=== PATIENT | male | born 1995 | race Caucasian/White ===

== ENCOUNTER 2018-01-24 21:18 | Emergency (ER) | payer SELFPAY ==
[2018-01-24 21:19] VITALS: BP 109/64; PULSE 102; RESP 15; TEMP 36.5; BMI 17.9
--- NOTE | 2018-01-24 21:30 | ED.VISSUMM ---
- ER Visit Summary Date of Service: 01/24/18 Chief Complaint: Right index finger laceration History of Present Illness: The patient is a 23 M who cut his finger while chopping vegetables. This occurred 21 hours ago. He did not come in to get evaluated. His tetanus is up-to-date. He came in today because it kept bleeding when he would bend his finger. Physical Examination: Vitals are reviewed. Right hand exam reveals a 1.5 cm laceration of the right index finger over the PIP joint on the radial side. No bleeding at this time. Test Results: None indicated Emergency Department Course and Treatment: I informed the patient that he is out of the window for suturing. We will clean this area and put a dressing on it. He will follow-up with his PCP. He will put topical antibiotic cream on the area as well. Treatment Plan: [] Disposition: Discharge Impression: Right index finger laceration This note was generated with [employer] dictation software. It may contain incorrect words, spelling, and punctuation that were not noted in review of the chart prior to signing ED Disposition - Plan for ED Patient: Chief Complaint: Laceration
--- NOTE | 2018-01-24 21:31 | ED.DEP ---
ED Disposition - Plan for ED Patient: Disposition: Home or Assisted Living Chief Complaint: Laceration Instructions: ED Laceration All Referrals: Maya Finley MD [COURTESY STAFF PHYSICIAN] -
== END 2018-01-24 22:13 | disposition home or self-care (01) ==
LOC: ED 21:37
PROVIDERS: Emergency Provider Emergency Medicine; Family Provider Pediatrics; PCP Pediatrics
DX: S61.210A Laceration without foreign body of right index finger without damage to nail, initial encounter (principal); W26.0XXA Contact with knife, initial encounter; Y93.G3 Activity, cooking and baking; Y92.9 Unspecified place or not applicable; Y99.9 Unspecified external cause status; Z72.0 Tobacco use
CPT/HCPCS: 99282

== ENCOUNTER 2018-02-06 13:48 | Emergency (ER) | payer SELFPAY ==
[2018-02-06 13:49] VITALS: BP 119/71; PULSE 109; RESP 18; TEMP 37.3; O2SAT 99; BMI 17.8
--- NOTE | 2018-02-06 15:25 | ED.DCSUM_ITS ---
- ER Visit Summary Date of Service: 02/06/18 Chief Complaint: Cough congestion History of Present Illness: The patient is a 23 M with 2 day history of cough and congestion. He has some myalgias but no fevers. He has bilateral ear pain and rhinorrhea. He has some sinus congestion. Physical Examination: Not appear in acute distress. Moist mucous membranes, no obvious facial deformity. He has bulging TMs sinus tenderness beefy red nasal turbinates and postnasal drip. No C-spine tenderness supple neck. Regular rate and rhythm without any obvious murmurs Clear lungs bilaterally speaking in full sentences without any obvious respiratory distress Abdomen soft and nontender no guarding or rebound Moves all extremities without any difficulty or pain. Skin does not show any obvious rashes or lesions, no trauma. Alert oriented ?3 with no gross focal deficit Emergency Department Course and Treatment: [Patient will be treated for sinusitis and given a work excuse. He will be discharged in stable condition] Impression: [Sinusitis] This note was generated with [employer] dictation software. It may contain incorrect words, spelling, and punctuation that were not noted in review of the chart prior to signing ED Disposition - Plan for ED Patient: Disposition: Home or Assisted Living Chief Complaint: General Illness Instructions: Causes of Sinusitis Prescriptions: Benzocaine/Menthol [Cepacol Sore Throat Lozenge] 1 ea MM Q4H PRN PRN #30 gaviota PRN Reason: Sore Throat Amox/Clavulanate Tablet [Augmentin Tablet] 875 mg PO Q12H #20 tab Referrals: Riley Saha MD [Primary Care Provider] - 5-7 Days
== END 2018-02-06 15:47 | disposition home or self-care (01) ==
PROVIDERS: Emergency Provider Emergency Medicine; Family Provider Pediatrics; PCP Pediatrics
DX: J32.9 Chronic sinusitis, unspecified (principal); Z72.0 Tobacco use
CPT/HCPCS: 99282

== ENCOUNTER 2018-04-24 13:02 | Emergency (ER) | payer SELFPAY ==
[2018-04-24 13:03] VITALS: BP 117/83; PULSE 99; RESP 17; TEMP 37.1; O2SAT 99; BMI 18.2
--- NOTE | 2018-04-24 14:09 | RAD_ITS ---
STUDY: X-RAY CHEST REASON FOR EXAM: Male, 23 years old. Cough TECHNIQUE: PA and lateral views of the chest. COMPARISON: None. FINDINGS: The lungs are hyperinflated there is no visualized focal consolidation pleural effusion or pulmonary edema. There is no demonstrated pleural abnormality. Normal size heart. Normal mediastinum and jimi. Normal visualized pulmonary arteries. Normal visualized aortic arch and descending thoracic aorta. Normal visualized thoracic spine. Normal visualized ribs, clavicles, and shoulders. There is no demonstrated abnormality of the visualized soft tissue structures of the upper abdomen. RAD/Chest PA and Lateral IMPRESSION: Nonspecific hyperinflation of the lungs no evidence of acute focal infiltrate. Electronically Signed: Karolina Wallace MD at 16:07 EDT Tel , Service support ,
[2018-04-24] MEDS: Ondansetron ODT 4 MG Tablet PO (15:12)
--- NOTE | 2018-04-24 16:31 | ED.DCSUM_ITS ---
- ER Visit Summary Date of Service: 04/24/18 Chief Complaint: URI History of Present Illness: The patient is a 23 M presenting with URI symptoms. Patient complains of cough, rhinorrhea, sore throat. He states his symptoms have been going on for the past 1.5 months. He has been seen by Tameka Guevara. He states he was tested for HIV, mono, and hep C. He states all of these tests came back negative. He continues to have a cough. He also complains of nausea vomiting diarrhea. He states that he had 2 episodes of vomiting today. Denies abdominal pain or other complaints. Physical Examination: Vitals are stable. Patient is afebrile. Alert no acute distress. HEENT exam is unremarkable. Pharynx is normal. No erythema, no exudate, uvula is midline Neck is supple. No meningismus Lungs are clear and equal bilaterally. Heart is regular rate and rhythm. Abdomen is soft nontender nondistended. No guarding or rebound Extremities are unremarkable. Skin is warm and dry. No rash No focal neurologic deficit. Remainder of exam is unremarkable. Emergency Department Course and Treatment: Patient is given Zofran p.o. with improvement. He is able to tolerate p.o. Chest x-ray shows no acute process. He is given a prescription for Tessalon Perles. Advised to follow-up with his primary care physician. Advised return to ED if worsening complaints. Disposition: Discharge home Impression: Viral syndrome This note was generated with [employer] dictation software. It may contain incorrect words, spelling, and punctuation that were not noted in review of the chart prior to signing ED Disposition - Plan for ED Patient: Chief Complaint: Cold Sx Referrals: Tameka Guevara [Primary Care Provider] -
--- NOTE | 2018-04-24 16:31 | ED.DEP ---
ED Disposition - Plan for ED Patient: Chief Complaint: Cold Sx Instructions: ED Upper Resp Infec No Abx Tx Prescriptions: Benzonatate [Tessalon Perle] 200 mg PO TID PRN PRN #20 capsule PRN Reason: Cough Referrals: Tameka Guevara [Primary Care Provider] -
== END 2018-04-24 16:41 | disposition home or self-care (01) ==
LOC: ED 14:35
PROVIDERS: Emergency Provider Emergency Medicine
DX: B34.9 Viral infection, unspecified (principal); R11.2 Nausea with vomiting, unspecified; R50.9 Fever, unspecified; R05 Cough; J02.9 Acute pharyngitis, unspecified; R19.7 Diarrhea, unspecified; Z72.0 Tobacco use
CPT/HCPCS: 71046; 99283

== ENCOUNTER 2018-11-07 11:28 | Emergency (ER) | payer SELFPAY ==
[2018-11-07 11:29] VITALS: BP 131/74; PULSE 109; RESP 16; TEMP 36.6; O2SAT 98; BMI 38.9
--- NOTE | 2018-11-07 12:08 | RAD_ITS ---
STUDY: X-RAY CHEST REASON FOR EXAM: Male, 23 years old. Cough. TECHNIQUE: PA and lateral views of the chest. COMPARISON: April 24, 2018 FINDINGS: The lungs are clear and expanded. There is no demonstrated pleural abnormality. Normal size heart. Normal mediastinum and jimi. Normal visualized pulmonary arteries. Normal visualized aortic arch and descending thoracic aorta. Normal visualized thoracic spine. Normal visualized ribs, clavicles, and shoulders. There is no demonstrated abnormality of the visualized soft tissue structures of the upper abdomen. RAD/Chest PA and Lateral IMPRESSION: Normal x-ray examination of the chest. Electronically Signed: Srinivas Gamboa MD at 13:19 EDT , Service support ,
[2018-11-07 13:12] VITALS: BP 118/78; PULSE 87; RESP 17; TEMP 36.3; O2SAT 99
--- NOTE | 2018-11-07 13:40 | ED.DCSUM_ITS ---
- ER Visit Summary Date of Service: 11/07/18 Chief Complaint: Sinusitis History of Present Illness: The patient is a 23 M who states for the past several days he has had nasal congestion runny nose bilateral ear pain a nonproductive cough and last night developed fever of 102.1 as low as chills and sweats. Is been taking Tylenol Cold and flu as well as the Mucinex. Notes a little bit of discomfort in his right mid lung he states it hard for him to describe it feels like something is there. He has a history of asthma not currently taking any medications. History of smoking. Physical Examination: Afebrile vital signs are stable Gen: Well-nourished well-developed Head: Normocephalic atraumatic Eyes: Perrl EOMI ENT: TMs clear bilateral turbinate edema. Postnasal drip. Moist mucous membranes Neck: Supple no lymphadenopathy no JVD nontender CVS: Regular rate rhythm no murmurs normal S1-S2 Respiratory: No distress clear to auscultation bilaterally chest nontender Abdomen: Soft nontender nondistended normal bowel sounds no masses Back: Nontender Extremity: Nontender no edema Skin: Normal color no rash Neuro: alert orientated ?3 CN II-XII intact normal strength sensation reflexes gait cerebellar Psych: Normal affect normal mood Test Results: Chest x-ray negative. Influenza negative. Emergency Department Course and Treatment: Patient will be started on Augmentin. Return if worsening or concerns. Follow up with PCP Impression: 1. Acute sinusitis This note was generated with [employer] dictation software. It may contain incorrect words, spelling, and punctuation that were not noted in review of the chart prior to signing ED Disposition - Plan for ED Patient: Disposition: Home or Assisted Living Instructions: ED Sinusitis Abx Tx Prescriptions: Amox/Clavulanate Tablet [Augmentin Tablet] 875 mg PO Q12H #20 tab Referrals: Tameka Guevara [Primary Care Provider] - As Needed
[2018-11-07 13:45] VITALS: BP 114/78; PULSE 81; RESP 16; O2SAT 99
== END 2018-11-07 13:46 | disposition home or self-care (01) ==
PROVIDERS: Emergency Provider Emergency Medicine
DX: J01.90 Acute sinusitis, unspecified (principal); H92.03 Otalgia, bilateral; J45.909 Unspecified asthma, uncomplicated; Z87.891 Personal history of nicotine dependence
CPT/HCPCS: 71046; 87804; 99282

== ENCOUNTER 2019-06-09 08:50 | Emergency (ER) | payer SELFPAY ==
[2019-06-09 08:50] VITALS: BP 124/77; PULSE 98; RESP 18; TEMP 36.8; O2SAT 100; BMI 17.9
[2019-06-09 09:00] VITALS: BP 124/77; PULSE 98; RESP 18; TEMP 36.8; O2SAT 100
--- NOTE | 2019-06-09 09:07 | ED.VISSUMM ---
- ER Visit Summary Date of Service: 06/09/19 Chief Complaint: Ear pain and sore throat History of Present Illness: The patient is a 24 M with left ear pain and sore throat since yesterday. No fevers or other associated symptoms. Physical Examination: Vitals unremarkable. Patient has a left TM effusion. Canal is erythematous without any other abnormalities. Tonsils 1+ bilaterally. Minimal exudates. Airway intact. No sign of abscess. No lymphadenopathy. Good range of motion of his neck. Afebrile. Test Results: None indicated Emergency Department Course and Treatment: After discussion with the patient, will treat with a dose of Decadron here. He was also started on Augmentin and will follow up with his primary doctor. Benadryl as needed for sleep at the patient's request. Treatment Plan: As above Disposition: Discharged Impression: 1. Left otitis media This note was generated with [employer] dictation software. It may contain incorrect words, spelling, and punctuation that were not noted in review of the chart prior to signing ED Disposition - Plan for ED Patient: Referrals: Tameka Guevara [Primary Care Provider] -
--- NOTE | 2019-06-09 09:10 | ED.DEP ---
ED Disposition - Plan for ED Patient: Instructions: OTITIS MEDIA, Abx Tx (Adult) Prescriptions: Amox/Clavulanate Tablet [Augmentin Tablet] 875 mg PO Q12H 10 Days #20 tab Prescription Printed DiphenhydrAMINE [Benadryl] 25 mg PO TID PRN PRN #20 cap PRN Reason: Sleep Prescription Printed Referrals: Tameka Guevara [Primary Care Provider] -
[2019-06-09] MEDS: Amox/Clavulanate 875 MG Tablet PO (09:14)
[2019-06-09] MEDS: dexAMETHasone 4 MG Tablet 10 MG PO (09:14)
[2019-06-09 09:18] VITALS: RESP 16
--- NOTE | 2019-06-09 09:19 | ED.RN ---
REVIEWED D/C INSTRUCTIONS, FOLLOW UP CARE, PRESCRIPTIONS, AND S/S THAT WOULD WARRANT A RETURN TO THE ED WITH PT. PT VERBALIZED AN UNDERSTANDING AND DENIES FURTHER QUESTIONS FOR THIS RN. PT SKIN P/W/D, RESP EVEN AND UNLABORED, PT A&O X 3, NO DISTRESS NOTED. PT AMBULATED OUT OF ED, GAIT STEADY.
== END 2019-06-09 09:20 | disposition home or self-care (01) ==
PROVIDERS: Emergency Provider Emergency Medicine
DX: H66.92 Otitis media, unspecified, left ear (principal); J02.9 Acute pharyngitis, unspecified; Z72.0 Tobacco use
CPT/HCPCS: 99283

== ENCOUNTER 2019-06-17 08:24 | Emergency (ER) | payer SELFPAY ==
[2019-06-17 08:25] VITALS: BP 136/96; PULSE 88; RESP 16; TEMP 36.3; O2SAT 97; BMI 17.9
--- NOTE | 2019-06-17 08:45 | ED.DCSUM_ITS ---
History of Present Illness Chief Complaint: Cough Informant: Patient Onset: Weeks Current Severity: Mild Narrative: Runny nose cough sore throat otitis media on antibiotics Indicates he has had runny nose sore throat cough earache he was started on antibiotics a few days ago after ED evaluation that is improved has had persistence of runny nose and cough, he is eating and drinking he has no other complaints he does smoke and is trying to quit Past Medical History - Allergies and Home Meds Allergies/Adverse Reactions: Allergies azithromycin Allergy (Verified 06/17/19 08:27) Hives fluoxetine Allergy (Verified 06/17/19 08:27) Hives Sulfa (Sulfonamide Antibiotics) Allergy (Verified 06/17/19 08:27) Hives Primary Care Physician: Tameka Guevara [Primary Care Provider] - Past Medical History: - - Declines Smoking Status: Current every day smoker Review of Systems General: Denies: Chills, Fever, Sweats Eyes: Denies: Visual changes - bilaterally, Diplopia ENT: Reports: Rhinorrhea, Sore throat Cardiovascular: Denies: Chest pain, Palpitations Respiratory: Reports: Cough. Denies: Dyspnea, Dyspnea on exertion Gastrointestinal: Denies: Abdominal pain, Nausea, Vomiting, Diarrhea, Melena, Hematochezia Genitourinary: Denies: Dysuria, Hematuria, Frequency Musculoskeletal: Denies: Back pain, Extremity Pain Skin: Denies: Rash, Wounds Neurological: Denies: Headache, Weakness, Numbness Physical Exam Vital Signs/Narrative: Vital Signs Temp Pulse Resp BP Pulse Ox 06/17/19 08:25 97.4 F L 88 16 136/96 H 97 General: Well nourished, Well developed, No Acute Distress Head: Normocephalic, Atraumatic Eyes: Perrl, EOMI ENT: Moist mucous membranes Neck: Supple, Nontender Cardiovascular: Regular rate, Regular rhythm, No murmurs Respiratory: No distress, CTA bilaterally, Chest nontender Abdomen: Soft, Nontender, Nondistended, Normal bowel sounds Back: Nontender, Normal Inspection Extremities: Nontender, No edema Skin: Normal color, No rash Neurological: Alert, Oriented x3, Cranial nerves II-XII grossly intact, Normal Strength, Normal Sensation Psychological: Normal affect, Normal Mood Diagnostic/Tx/Re-eval - Medical Decision Making Patient's physical exam was marked for copious rhinorrhea and a harsh cough his airways intact his lungs are clear heart tones are really unremarkable abdomen soft and nontender his vital signs and pulse ox are unremarkable he is currently on Augmentin will have him continue that till completion, start Mucinex Flonase Proventil and have him follow-up with his outpatient providers he is comfortable with this plan he is eating and drinking well he understands need to stop smoking and otherwise he has been doing well at home he was not coughing he would not be in the emergency department as that is his chief complaint Home stable Final impression acute URI with harsh cough ED Disposition - Plan for ED Patient: Instructions: BRONCHITIS, Antiobiotic Treatment (Adult) Prescriptions: Fluticasone 0.05% [Flonase Nasal [place]] 1 spray NASAL BID #1 bottle Prescription Printed Guaifenesin [Mucinex] 600 mg PO BID #20 tab.er.12h Prescription Printed Albuterol Inhaler [Ventolin Hfa] 1 - 2 puff INHALATION Q4H PRN PRN #1 inhaler PRN Reason: Wheezing Prescription Printed Referrals: Tameka Guevara [Primary Care Provider] -
[2019-06-17 09:06] VITALS: RESP 18
== END 2019-06-17 09:08 | disposition home or self-care (01) ==
PROVIDERS: Emergency Provider Emergency Medicine
DX: J06.9 Acute upper respiratory infection, unspecified (principal); R05 Cough; F17.200 Nicotine dependence, unspecified, uncomplicated; Z79.899 Other long term (current) drug therapy; Z88.2 Allergy status to sulfonamides
CPT/HCPCS: 99282

== ENCOUNTER 2019-06-19 06:31 | Emergency (ER) | payer SELFPAY ==
[2019-06-19 06:32] VITALS: BP 124/69; PULSE 65; RESP 18; TEMP 37.1; O2SAT 99; BMI 17.6
[2019-06-19 06:36] VITALS: BP 124/69; PULSE 65; RESP 18; TEMP 37.1; O2SAT 99
--- NOTE | 2019-06-19 06:42 | RAD_ITS ---
STUDY: X-RAY CHEST REASON FOR EXAM: Male, 24 years old. Chest pain, cold symptoms and cough. TECHNIQUE: Single AP portable upright view of the chest. Patient is slightly rotated to the left and seen in an antilordotic position. COMPARISON: PA and lateral chest x-ray November 07, 2018. FINDINGS: The lungs are clear and expanded. There is no demonstrated pleural abnormality. Normal size heart. Normal mediastinum and jimi. Normal visualized pulmonary arteries. Normal visualized aortic arch and descending thoracic aorta. Normal visualized thoracic spine. Normal visualized ribs, clavicles, and shoulders. There is no demonstrated abnormality of the visualized soft tissue structures of the upper abdomen. RAD/Chest 1 View (Portable) IMPRESSION: No acute cardiopulmonary disease. Electronically Signed: Raghavendra Yeung MD at 7:39 EST , Service support ,
--- NOTE | 2019-06-19 06:46 | ED.DCSUM_ITS ---
- ER Visit Summary Date of Service: 06/19/19 Chief Complaint: URI, cough History of Present Illness: The patient is a 24 M presenting with cough and URI symptoms. He states this has been ongoing for the past 2 weeks. He has been taking Tylenol at home. He was seen in the ED 2 days ago and was given Flonase, Mucinex, and albuterol. He complains of persistent cough. He has chest pain when he coughs. He states he is not able to take NSAIDs due to acid reflux. Denies other complaints. Physical Examination: Vitals are stable. Patient is afebrile. Alert no acute distress. HEENT exam no pharyngeal erythema, uvula midline. Neck is supple. No meningismus Lungs are clear and equal bilaterally. Chest wall tenderness with no crepitus Heart is regular rate and rhythm. Abdomen is soft nontender nondistended. Extremities are unremarkable. Skin is warm and dry. No rash No focal neurologic deficit. Remainder of exam is unremarkable. Emergency Department Course and Treatment: Chest x-ray shows no acute process. He was given prescription for Tessalon Perles. Advised to follow-up with primary care physician. Advised return to ED for worsening complaints. Disposition: Discharge home Impression: URI This note was generated with [employer] dictation software. It may contain incorrect words, spelling, and punctuation that were not noted in review of the chart prior to signing ED Disposition - Plan for ED Patient: Instructions: BRONCHITIS, No Antibiotic (Adult) Prescriptions: Benzonatate [Tessalon Perle] 200 mg PO TID PRN PRN #20 cap PRN Reason: Cough Transmission Status: Received by [facility] [facility] Referrals: Tameka Guevara [Primary Care Provider] -
--- NOTE | 2019-06-19 07:45 | ED.DEP ---
ED Disposition - Plan for ED Patient: Instructions: BRONCHITIS, No Antibiotic (Adult) Prescriptions: Benzonatate [Tessalon Perle] 200 mg PO TID PRN PRN #20 cap PRN Reason: Cough Transmission Status: Pending to [facility] Referrals: Tameka Guevara [Primary Care Provider] -
== END 2019-06-19 08:05 | disposition home or self-care (01) ==
PROVIDERS: Emergency Provider Emergency Medicine
DX: J06.9 Acute upper respiratory infection, unspecified (principal); Z72.0 Tobacco use
CPT/HCPCS: 71045; 99282

== ENCOUNTER 2020-12-23 07:35 | Emergency (ER) | payer MEDICAID, SELFPAY ==
[2020-12-23 07:36] VITALS: BP 154/79; PULSE 87; RESP 14; TEMP 36.6; O2SAT 99; BMI 16.7
[2020-12-23 07:51] VITALS: O2SAT 99
--- NOTE | 2020-12-23 07:51 | RAD_ITS ---
EXAM: XR CHEST, 2 VIEWS : 1997 CLINICAL INDICATION: Right sided CP, SOB, hx asthma TECHNIQUE: Frontal and lateral views of the chest. This report was created using [employer] report generation technology. COMPARISON: 06/19/2019 FINDINGS: LUNGS AND PLEURAL SPACES: Unremarkable. No consolidation or edema. No pneumothorax. No effusion. HEART: Unremarkable. Cardiac silhouette not enlarged. MEDIASTINUM: Central airways and mediastinal contour are unremarkable. BONES/JOINTS: Unremarkable. SOFT TISSUES: Unremarkable. RAD/Chest PA and Lateral IMPRESSION: No radiographic evidence of acute cardiopulmonary disease. at 0830 Reported and signed by: Erickson Rios MD Electronically Signed: Erickson Rios MD at 8:29 EDT Tel , Service support ,
--- NOTE | 2020-12-23 07:52 | EX.ED.DYSGE1 ---
HPI History of Present Illness Chief Complaint: Shortness of Breath Informant: patient Narrative Narrative: Patient is a 25-year-old male who presents to the emergency department for right-sided chest pain as well as shortness of breath. He states that he was talking and moving his arms around. Whenever he follows arms out this triggered his pain. He has been having pain over the past couple of weeks and has been seen by his PCP for this. The pain today is much worse than it has been. He has not taken anything for this morning. He states his family doctor put him on doxycycline a few weeks ago thinking it could have been an infection. Patient had a chest x-ray ordered as an outpatient but he never had this done. He states that taking a deep breath then seems to exacerbate it. He describes as a sharp stabbing pain. He denies a significant cough. No fevers or chills. No abdominal pain or back pain. No radiation of the pain. No leg swelling or calf pain. No history of DVT/PE. Patient states he has ran out of his inhalers but does not think this is asthma because it is more painful. Patient does smoke cigarettes. PFSH [facility] Medical History ADHD Asthma Seizures Home Medications albuterol sulfate 1 - 2 puff INHALATION Q4H PRN PRN #1 inhaler 06/17/19 [Rx Last Taken Unknown] budesonide-formoterol [Symbicort] 1 puff INHALATION DAILY 12/23/20 [History Last Taken Unknown] cetirizine 10 mg PO DAILY 12/23/20 [History Last Taken Unknown] dextroamphetamine 10 mg PO DAILY 12/23/20 [History Last Taken Unknown] dextroamphetamine-amphetamine 30 mg PO DAILY 12/23/20 [History Last Taken Unknown] lorazepam 12/23/20 [History Last Taken Unknown] Allergy/AdvReac Type Severity Reaction Status Date / Time azithromycin Allergy Hives Verified 12/23/20 07:36 fluoxetine Allergy Hives Verified 12/23/20 07:36 Sulfa (Sulfonamide Allergy Hives Verified 12/23/20 07:36 Antibiotics) Social History Smoking Status: Current some day smoker tobacco type: cigarettes and e-cigarettes ROS ROS ED Constitutional Constitutional ED: Denies chills or fever(s) Eyes Eyes: Denies change in vision ENT ENT ED: Denies epistaxis or rhinorrhea Cardiovascular Cardiovascular: Reports chest pain; Denies palpitations Respiratory/Chest Respiratory/Chest: Reports chest tightness, dyspnea and pain on inspiration; Denies cough Gastrointestinal Gastrointestinal: Denies abdominal pain, diarrhea, nausea or vomiting Musculoskeletal Musculoskeletal: Denies back pain or neck pain Integumentary Denies rash Neurologic Neurologic: Denies dizziness, headache(s) or weakness EXAM Physical Exam Const Vital Signs: 12/23/20 07:36 12/23/20 07:51 12/23/20 09:06 Temperature 98 F Temperature Source Temporal Pulse Rate 87 70 Respiratory Rate 14 16 Respiratory Effort Short of Breath Labored Respiratory Depth Normal Respiratory Pattern Normal Blood Pressure 154/79 H 110/72 Blood Pressure Mean 104 Pulse Ox 99 98 Oxygen Delivery Method Room Air Room Air Positive well nourished and well developed General Appearance ED: well developed and NAD HEENT Reports normocephalic, head/scalp atraumatic and moist mucous membranes Eyes PERRL and EOMs intact bilaterally Neck supple Chest Wall inspection of chest normal Resp normal respiratory effort and clear to auscultation bilaterally Resp Narrative: Pain to palpation of chest wall. Auscultation: Negative for rales, rhonchi or wheezes Cardio regular rate, regular rhythm and no murmurs GI normal to inspection, nondistended, normoactive bowel sounds and non-tender Palpation: soft; Negative for guarding or rebound tenderness present Extremity normal to inspection General Extremety ED: Negative for edema or tenderness General Extremity: Negative for edema Neuro CN's II-XII intact bilaterally and no sensory deficits noted Sensorium / Orientation: alert Motor Exam: strength 5/5 throughout Psych mental status grossly normal Skin no rashes or lesions noted MDM MDM MDM Narrative Medical decision making narrative: Patient presents to the emergency department for chest pain after moving his arms outward. He has had issues with chest pain over the past couple of weeks. It is reproducible on physical exam with palpation. On arrival his vital signs are within normal limits. He is not hypoxic. He is not tachycardic. He is PERC negative. Will check x-ray to evaluate for pneumothorax. Chest x-ray did not reveal acute cardiopulmonary abnormality. He is feeling better after the Toradol shot. Since patient symptoms are reproducible I have very low concern for ACS, PE or aortic catastrophe. His vital signs have been normal throughout ED stay. Will recommend symptomatic treatment. Return precautions are reviewed with him including any worsening shortness of breath, chest pain. He understands and is agreeable this plan. He otherwise is to follow-up with his PCP. All questions answered. Patient counseled on smoking and vaping cessation. Radiography Chest X-Ray - ED: 2 View (2 view x-ray interpreted myself. Clear lung pringle bilaterally. No obvious pneumothorax. Normal mediastinum.) Diagnostic Testing: Radiology Impression Chest X-Ray 12/23/20 07:51 IMPRESSION: No radiographic evidence of acute cardiopulmonary disease. at 0830 Reported and signed by: Erickson Rios MD Electronically Signed: Erickson Rios MD at 8:29 EDT Tel , Service support , Discharge Plan Triage Chief Complaint: Shortness of Breath ED Provider: Montrell Rowan Dx/Rx/DC Orders Clinical Impression: Chest wall pain Instructions: ED Chest Wall Pain, Costochondritis Prescriptions: No Action albuterol sulfate 1 INHALER inhaler 1 - 2 puff inhalation Q4H PRN PRN (Reason: Wheezing) Qty: 1 RF: 0 cetirizine 10 mg tablet 10 mg PO DAILY RF: 0 dextroamphetamine-amphetamine 30 mg tablet 30 mg PO DAILY RF: 0 dextroamphetamine 10 mg capsule, extended release 10 mg PO DAILY RF: 0 lorazepam 0.5 mg tablet RF: 0 budesonide-formoterol [Symbicort] 160-4.5 mcg/actuation HFA aerosol inhaler 1 puff INHALATION DAILY RF: 0 Referrals: NORMA HALLMAN [Other] - 3-5 Days if not improving Disposition Disposition: Home, self care Discharge Date/Time: 12/23/20 09:23
[2020-12-23] MEDS: Ketorolac 30 MG/ML Syringe IM (07:57)
[2020-12-23 09:06] VITALS: BP 110/72; PULSE 70; RESP 16; O2SAT 98
[2020-12-23] MEDS: Albuterol Sulfate 8 gm Inhaler (60 puffs) 2 PUFF INHALATION (09:22)
== END 2020-12-23 09:23 | disposition home or self-care (01) ==
PROVIDERS: Emergency Provider Emergency Medicine
DX: R07.89 Other chest pain (principal); F17.210 Nicotine dependence, cigarettes, uncomplicated; J45.909 Unspecified asthma, uncomplicated; Z79.899 Other long term (current) drug therapy; Z79.51 Long term (current) use of inhaled steroids
CPT/HCPCS: 71046; 96372; 99282